=== PATIENT | female | born 1950 | race Caucasian/White ===

== ENCOUNTER 2019-02-23 02:46 | Inpatient (IN) | payer OTHER ==
--- NOTE | 2019-02-23 04:26 | PDOC.FPRHP ---
- History of Present Illness Chief Complaint: L hand pain History of Present Illness: 68yo F with pmh of RA on hydroxychloroquin [facility] for cellulitis. Pt nicked the skin of her L thumb 1-2 weeks ago moving a fire pit and then had the wound dirty while cleaning bee boxes. Pt reports since then she has had worsening edema, erythema and tenderness. No fever/ chills. Pt saw doctor recently who though it to be RA exacerbation and did not Rx antibiotics. Pt then presented to ED now with symptoms. L hand xray was done and shows soft tissue swelling alone and WBC 14 ED Course: see hpi - Allergies/Adverse Reactions Allergies Allergy/AdvReac Type Severity Reaction Status Date / Time codeine Allergy Mild Rash Verified 02/23/19 05:36 - Home Medications Medication Instructions Recorded Confirmed Type Atorvastatin Calcium [Lipitor] 20 mg PO DAILY 02/23/19 02/23/19 History Celecoxib 200 mg PO DAILY PRN 02/23/19 02/23/19 History Gabapentin 300 mg PO Q8H 02/23/19 02/23/19 History Hydroxychloroquine Sulfate 200 mg PO BID 02/23/19 02/23/19 History [Plaquenil] Valsartan/Hydrochlorothiazide 1 tablet PO DAILY 02/23/19 02/23/19 History [Diovan HCT] Venlafaxine HCl [Venlafaxine HCl 75 mg PO DAILY 02/23/19 02/23/19 History ER] - History PMHx: RA, stage 4 breast cancer (in remession with experimental drugs by [facility]) PSHx: hepatic cancerous lesion ablation FHx: mom- CAD Social: drinks 4 glasses of wine nightly, denies tobacco/drugs - Review of Systems ROS unobtainable: due to mental status General: denies: fever/chills, fatigue Eyes: denies: eye pain, vision changes ENT: denies: nasal congestion, rhinorrhea Respiratory: denies: congestion, shortness of breath Cardiovascular: denies: chest pain, palpitation Gastrointestinal: denies: nausea, vomiting Genitourinary: denies: incontinence, dysuria Skin: reports: other (L hand erythema). denies: jaundice Musculoskeletal: denies: pain, tenderness Neurological: denies: numbness, syncope Psychological: denies: anxiety, depression - Vital signs BP: [142/93] HR: [81] RR: [20] Tmax: [98.1] Pox: [94 ]% on [ra] Wt: [63] - Physical Exam Constitutional: awake, alert and oriented, well developed HEENT: normocephalic and atraumatic, EOMI, grossly normal vision, grossly normal hearing Neck: supple, no thyromegaly Chest: no-tender to palpation Heart: RRR, normal S1/S2 Lungs: CTAB, no respiratory distress Abdomen: soft, non-tender Musculoskeletal: other (pain and erythema L hand, TTP, pain with passive and active mvmt) Neurological: no focal deficit, normal sensation Skin: no rash/lesions, good turgor Heme/Lymphatic: no unusual bruising or bleeding, no purpura Psychiatric: normal mood and affect, good judgment and insight FMR H&P: A/P - Problem List (1) Tenosynovitis Current Visit: Yes Status: Acute Code(s): M65.9 - SYNOVITIS AND TENOSYNOVITIS, UNSPECIFIED (2) Rheumatoid arthritis Current Visit: Yes Status: Acute Code(s): M06.9 - RHEUMATOID ARTHRITIS, UNSPECIFIED (3) HTN (hypertension) Current Visit: Yes Status: Acute Code(s): I10 - ESSENTIAL (PRIMARY) HYPERTENSION (4) HLD (hyperlipidemia) Current Visit: Yes Status: Acute Code(s): E78.5 - HYPERLIPIDEMIA, UNSPECIFIED - Plan Tenosynovitis A- Nec Fasc unlikely from relatively unimpressive exam however exam is concerning for possible tenosynovitis. L hand xray just shows soft tissue swelling. WBC 14 P- MRI - continue clinda and zosyn - monitor exam RA - hold hydroxychloroquin for now HTN -home medications HLD - home medications Anxiety depression - home medications CODE: FULL FMR H&P: Upper Level - Pertinent history Pt is a 68 year old female who presents to the ED for worsening left hand/arm redness. Pt reports that two weeks ago, she noticed that her left thumb was tender and she thought that she may have had a thorn or splinter in it, so she tried to draw it out using a needle and drawing salves. She reports worsening pain over the last several days. Transferred from [facility] due to lack of beds. Was given Clindamycin and Zosyn prior to transfer. - Pertinent findings Vitals: BP: 124/79 P: 73 RR: 18 T: 98.3 O2: 98%on RA Exam: General: alert and oriented x 3 Heart: regular rate and rhythm, no murmurs, rubs, or gallops. Lungs: clear to auscultation Hand: left hand, mild digital swelling; site of penetrating injury on distal palmar left thumb; redness and erythema worse in 5th digit. decreased flexion involving all digits. - Plan Date/Time: 02/23/19 8475 I, Lavern Clarke, have evaluated this patient and agree with findings/plan as outlined by business management intern resident. Pertinent changes/additions are listed here. Tenosynovitis of left hand - will admit to medical unit for observation. - continue IV antibiotics. - MRI for further evaluation, with possible ortho consult depending on results. - will arrange to place pt in skyhook to help decrease swelling/inflammation. Regarding chronic medical problems, will restart home meds. Addendum - Attending - Attending Attestation Date/Time: 02/23/19 1755 I personally evaluated the patient and discussed the management with Dr. Arechiga I agree with the History, Examination, Assessment and Plan documented above with any addition or exceptions noted below. 68 yo right handed female with HX RA and breast CA receiving herceptin with several weeks swelling tenderness palmar aspect mid left thumb status post puncture wound from new firepit several weeks and now with increased swelling and streaking noted to left thumb palm and base 5th finger. Patient denies fever /chills patient with marked swelling hand able to flex and extend thumb admitted with cellulitis with some concern flexor tenosynovitis and closed space infection left hand. Empirical AB, MRI hand and consultation with Orthopedics.Patient received tetanus booster in [facility].
[2019-02-23 06:00] VITALS: BMI 22.0
[2019-02-23] MEDS ORDERED: Piperacillin/Tazobactam 4.5 GM in Sodium Chloride 0.9% 100 ML IVPB SCH (06:00)
[2019-02-23] MEDS ORDERED: Clindamycin Phosphate/D5W 600 MG/50 ML PIGGYBACK IV SCH (06:00)
[2019-02-23] MEDS ORDERED: Acetaminophen 325 MG TAB PO PRN (06:14)
[2019-02-23] MEDS ORDERED: Ondansetron ODT 4 MG TAB PO PRN (06:14)
[2019-02-23] MEDS ORDERED: traMADol HCl 50 MG TAB PO PRN (06:25)
[2019-02-23] MEDS: Gabapentin 300 MG CAP PO SCH ×3 (06:44→22:21)
[2019-02-23] MEDS: Valsartan 80 MG TAB PO SCH (08:38)
[2019-02-23] MEDS: Atorvastatin Calcium 20 MG TAB PO SCH (08:38)
[2019-02-23] MEDS: Enoxaparin Sodium 40 MG/0.4 ML SYRINGE SC SCH (08:38)
[2019-02-23] MEDS: Hydrochlorothiazide 25 MG TAB PO SCH (08:38)
[2019-02-23] MEDS: Venlafaxine HCl XR 75 MG CAP PO SCH (08:38)
[2019-02-23] MEDS ORDERED: Hydroxychloroquine Sulfate 200 MG TAB PO SCH (09:00)
[2019-02-23] MEDS ORDERED: CeleCOXIB 100 MG CAP PO PRN (09:00)
[2019-02-23] MEDS ORDERED: Prevnar 13-Val Conj/PF 0.5 ML SYRINGE IM ONE (09:00)
[2019-02-23] MEDS: Ibuprofen 600 MG TAB PO SCH ×3 (10:42→20:56)
[2019-02-23] MEDS: Piperacillin/Tazobactam 3.375 GM in Sodium Chloride 0.9% 100 ML IVPB SCH ×3 (10:45→23:57)
--- NOTE | 2019-02-23 12:05 | CON ---
DATE OF CONSULTATION: 02/23/2019 REQUESTING PHYSICIAN: Family Medicine Residents. CONSULTING PHYSICIAN: Efra Mcgrath MD REASON FOR CONSULTATION: Left hand pain and infection. HISTORY OF PRESENT ILLNESS: This is a 68-year-old female with a past medical history of rheumatoid arthritis, currently on rheumatoid medications, who presented as a transfer from the [facility] ED for left hand cellulitis. Currently at bedside, the patient reports that she nicked the skin of her left thumb approximately 1 to 2 weeks ago. She does not remember the mechanism or what she hit her hand on. Since that time, she has had worsening edema and erythema. She denies any fever or chills. She did see her primary care physician, who thought her symptoms to be rheumatoid arthritis exacerbation and did not prescribe any antibiotics. She then followed up several days later with worsening symptoms. This was at [facility] in [place]. She was then transferred to [facility] in [facility]. The patient states she left AMA after not seeing a provider. This is a time-out which she presented to the [facility]. When she presented at that time, blood was drawn and the patient was started on IV antibiotics. At bedside, the patient states that since starting the IV antibiotics, her symptoms have improved. The redness is decreased significantly. Her swelling persists, but is still somewhat improved. She is right-hand dominant. PAST MEDICAL HISTORY: Significant for rheumatoid arthritis, stage IV breast cancer in remission with experimental drugs by [facility]. Hypertension and hyperlipidemia. PAST SURGICAL HISTORY: Hepatic cancerous lesion ablation. SOCIAL HISTORY: The patient states that she drinks four glasses of wine nightly. Denies any tobacco or illicit drug use. FAMILY HISTORY: Reviewed and noncontributory. ALLERGIES: INCLUDE CODEINE. PHYSICAL EXAMINATION: VITAL SIGNS: Temperature 98.1, pulse of 81, respiratory rate of 20, O2 saturation of 94% on room air, and blood pressure 142/93. GENERAL: The patient is awake and alert. She is pleasant and appropriate with exam today. There is a friend present in the exam room at the time of our visit. HEENT: Head is normocephalic and atraumatic. NECK: Supple. Trachea midline. Breathing nonlabored. EXTREMITIES: The left upper extremity was evaluated. The patient has soft tissue swelling diffusely across the hand and all digits into the distal portion of the wrist. There is very mild erythema along the palmar aspect diffusely over the hand and the digits. There does appear to be a healing wound present to the palmar aspect of the distal portion of the thumb. There is a small scab present here. No drainage. I have palpated the entire hand including all flexor and extensor tendons. The patient does not show any signs of discomfort with this. She has limited motion in all digits, likely secondary to soft tissue swelling. No tenderness to palpation over any of her joints in the hand. No focal area of fluid collection is palpable. The patient is mildly tender upon palpation of the volar aspect of the wrist in the carpal tunnel region. No soft tissue swelling noted in the forearm, elbow, or shoulder. The patient is able to move the elbow and the shoulder freely without any signs of discomfort. All other extremities evaluated and no other injuries or infections are noted. X-rays reviewed on the [facility] system including views of the left hand demonstrate some soft tissue swelling about the thumb. No radiopaque foreign body is visualized. No fractures are visualized. There is a mild degree of degenerative changes about the hand. ASSESSMENT: Left hand cellulitis without palpable focal fluid collection. PLAN: At this point, the patient has eaten already today at around 10:30 this morning. We would like to continue her IV antibiotics. We will make her n.p.o. at midnight and plan to recheck her first thing in the morning. If her condition worsens or there is a palpable fluid collection on exam in the morning or concern for flexor tenosynovitis, we will plan for surgery tomorrow. Plan of care discussed with the patient today. She verbalized understanding. Job ID: [id number] [facility]
[2019-02-23] MEDS: Clindamycin/D5W 300 MG/50 ML BAG IVPB SCH ×2 (13:34→19:12)
[2019-02-23] MEDS ORDERED: Lorazepam 1 MG TAB PO SCH (13:45)
[2019-02-23] MEDS: traMADol HCl 50 MG TAB PO PRN ×2 (17:52→23:59)
[2019-02-23] MEDS ORDERED: hydrOXYzine 25 MG TAB PO PRN (19:59)
[2019-02-23] MEDS: Melatonin 3 MG TAB PO PRN (22:27)
[2019-02-24] MEDS: Clindamycin/D5W 300 MG/50 ML BAG IVPB SCH ×4 (00:54→19:35)
[2019-02-24] MEDS: Ibuprofen 600 MG TAB PO SCH ×4 (02:15→21:01)
[2019-02-24 06:17] LABS: #Eosinphils 0.2 thou/uL (0.0-0.7); #Lymphocytes 1.2 thou/uL (1.20-3.40); #Neutrophils 6.2 thou/uL (1.40-6.50); %Basophils 0.4 % (0.0-1.0); %Lymphocytes 13.6 % (21.0-51.0); %Monocytes 11.3 % (0.0-10.0); %Neutrophils 72.8 % (42.0-75.0); Hemoglobin 11.9 g/dL (12.0-16.0); Mean Corpuscular HGB CONC 33.7 g/dL (32.0-36.0); Mean Corpuscular Volume 97.8 fL (78.0-98.0); Mean Platelet Volume 7.1 fL (7.4-10.4); Platelet Count 157 thou/uL (130-400); RBC Distribution Width 11.9 % (11.5-14.5); Red Blood Cell (RBC) Count 3.61 mill/uL (4.20-5.40); White Blood Cell (WBC) Count 8.5 thou/uL (4.8-10.8)
[2019-02-24] MEDS: Gabapentin 300 MG CAP PO SCH ×3 (06:28→22:23)
[2019-02-24] MEDS: Piperacillin/Tazobactam 3.375 GM in Sodium Chloride 0.9% 100 ML IVPB SCH ×3 (06:29→18:09)
--- NOTE | 2019-02-24 06:51 | PDOC.FM ---
- Subjective Subjective: pt reports increased pain that is controlled with medication, swelling increased. - Objective Vital Signs & Weight: Vital Signs (12 hours) Temp Pulse Resp BP Pulse Ox 02/24/19 04:00 97.6 F 81 18 111/74 95 02/24/19 00:00 97.8 F 75 20 115/74 99 02/23/19 20:00 98.0 F 94 18 104/68 95 Weight Weight 63.8 kg I&O: 02/22/19 02/23/19 02/24/19 06:59 06:59 06:59 Intake Total 1010 Balance 1010 Result Diagrams: 02/24/19 05:45 Phys Exam - Physical Examination Constitutional: NAD HEENT: moist MMs Neck: no nodes Gastrointestinal: no distention ROM, pulses, sensation intact, minimal pain with palpation Neurological: non-focal Lymphatic: no nodes Psychiatric: normal affect Skin: no rash Deviation from normal: increased edema, reduced erythema margins Dx/Plan (1) HLD (hyperlipidemia) Code(s): E78.5 - HYPERLIPIDEMIA, UNSPECIFIED Status: Acute (2) HTN (hypertension) Code(s): I10 - ESSENTIAL (PRIMARY) HYPERTENSION Status: Acute (3) Rheumatoid arthritis Code(s): M06.9 - RHEUMATOID ARTHRITIS, UNSPECIFIED Status: Acute (4) Tenosynovitis Code(s): M65.9 - SYNOVITIS AND TENOSYNOVITIS, UNSPECIFIED Status: Acute - Plan Plan: Cellulitis - Nec Fasc unlikely from relatively unimpressive exam however exam is concerning for possible tenosynovitis. L hand xray just shows soft tissue swelling. WBC mildly elevated initially, downtrending - CRP elevated, MRI pending change in status - continue clinda and zosyn - ortho consulted, appreciate recs - monitor exam RA - hold hydroxychloroquin for now HTN -home medications HLD - home medications Anxiety depression - home medications CODE: FULL Diet: NPO at midnight Dispo: monitor for rapid spreading or loss of fxn, ortho considering surgery for status change Addendum - Attending - Attending Attestation Date/Time: 02/24/19 7634 I personally evaluated the patient and discussed the management with Dr. Michelle I agree with the History, Examination, Assessment and Plan documented above with any addition or exceptions noted below. Elevation of hand not started yet significant swelling this am stressed importance of elevation and dependant drainage. Continue current broad spectrum IV antibiotics. Pain controlled, WBC downtrending, appreciate Orthopedic recommendations.
[2019-02-24] MEDS: Hydrochlorothiazide 25 MG TAB PO SCH (08:43)
[2019-02-24] MEDS: Venlafaxine HCl XR 75 MG CAP PO SCH (08:44)
[2019-02-24] MEDS: Enoxaparin Sodium 40 MG/0.4 ML SYRINGE SC SCH (08:44)
[2019-02-24] MEDS: Atorvastatin Calcium 20 MG TAB PO SCH (08:44)
[2019-02-24] MEDS: Valsartan 80 MG TAB PO SCH (08:45)
[2019-02-24] MEDS: Lorazepam 1 MG TAB PO SCH (12:29)
[2019-02-24] MEDS: traMADol HCl 50 MG TAB PO PRN (12:30)
[2019-02-24] MEDS ORDERED: Lorazepam 1 MG TAB PO SCH (13:45)
--- NOTE | 2019-02-24 15:23 | MRI ---
MRI LEFT HAND PERFORMED WITH AND WITHOUT CONTRAST ENHANCEMENT: History: Patient has a history of a splinter in the thumb two weeks ago. Complains of pain and swelling which began in the thumb and now the entire hand is affected. FINDINGS: The marrow signal change within the hand is fairly normal. There is some minimal cystic change relate d to the third metacarpal head. This appears to be more related to arthritic change, not osteomyeliti s type process. There is pronounced edema changes with enhancement and edema change involving the flexor tendons. Thi s is particularly announced in the carpal tunnel region. It may have begun as infection related to fl exor tendon of the thumb and has now progressed into the carpal tunnel region. There is minimal fluid associated with and the carpal tunnel is somewhat enlarged related to the edema change. There is subcutaneous edema change in the hand and wrist consistent with associated cellulitis. No fo obie abscess collection is seen. IMPRESSION: Marked tenosynovitis change of the flexor tendons with marked edema change and enhancement, particula rly in the carpal tunnel region but extending into the flexor tendons, particularly at the level of t he thumb. Given the history, these changes would have to be viewed with a great deal of suspicion for an infection. Infectious tenosynovitis, possibly from some type of atypical organism. Findings were telephoned to Gudelia, the patient's nurse, who will telephone these results to the referring physician. POS: [facility]
[2019-02-25] MEDS: Piperacillin/Tazobactam 3.375 GM in Sodium Chloride 0.9% 100 ML IVPB SCH ×5 (00:13→23:21)
[2019-02-25] MEDS: Clindamycin/D5W 300 MG/50 ML BAG IVPB SCH ×4 (01:18→20:32)
[2019-02-25] MEDS: Ibuprofen 600 MG TAB PO SCH ×4 (03:51→20:42)
--- NOTE | 2019-02-25 06:34 | PDOC.FM ---
- Subjective Subjective: pt resting comfortably in bed, anxious about her operation. She denies any increased pain or swelling - Objective Vital Signs & Weight: Vital Signs (12 hours) Temp Pulse Resp BP Pulse Ox 02/24/19 20:00 97.8 F 100 16 105/67 93 L Weight Weight 63.8 kg I&O: 02/23/19 02/24/19 02/25/19 06:59 06:59 06:59 Intake Total 1010 660 Balance 1010 660 Result Diagrams: 02/25/19 06:18 Phys Exam - Physical Examination Constitutional: NAD HEENT: moist MMs Gastrointestinal: no distention Musculoskeletal: no edema Neurological: moves all 4 limbs Psychiatric: normal affect Deviation from normal: erythema marigins same as before, more diffuse edema Dx/Plan (1) HLD (hyperlipidemia) Code(s): E78.5 - HYPERLIPIDEMIA, UNSPECIFIED Status: Acute (2) HTN (hypertension) Code(s): I10 - ESSENTIAL (PRIMARY) HYPERTENSION Status: Acute (3) Rheumatoid arthritis Code(s): M06.9 - RHEUMATOID ARTHRITIS, UNSPECIFIED Status: Acute (4) Tenosynovitis Code(s): M65.9 - SYNOVITIS AND TENOSYNOVITIS, UNSPECIFIED Status: Acute - Plan Plan: Cellulitis - Nec Fasc unlikely from relatively unimpressive exam however exam is concerning for possible tenosynovitis. L hand xray just shows soft tissue swelling. WBC mildly elevated initially, downtrending - CRP elevated, MRI suspicious for infectious tensynovitis - continue clinda and zosyn - ortho consulted, appreciate recs - monitor exam - blaise ibuprofen, prn tramadol for pain control, elevate RA - hold hydroxychloroquin for now HTN -home medications HLD - home medications Anxiety depression - home medications CODE: FULL Diet: NPO at midnight Dispo: monitor for rapid spreading or loss of fxn, ortho to take for surgery today Addendum - Attending - Attending Attestation Date/Time: 02/25/19 0290 I personally evaluated the patient and discussed the management with Dr. Michelle I agree with the History, Examination, Assessment and Plan documented above with any addition or exceptions noted below. For Surgery today consider atypical infection sporotrichosis other fungal, mycobacteriun marinum etc may need improved MRSA as well coverage hopefully will get specimen to stain, culture from surgery.
[2019-02-25 06:35] LABS: #Eosinphils 0.2 thou/uL (0.0-0.7); #Lymphocytes 0.9 thou/uL (1.20-3.40); #Monocytes 0.7 thou/uL (0.11-0.59); #Neutrophils 3.7 thou/uL (1.40-6.50); %Basophils 0.3 % (0.0-1.0); %Lymphocytes 16.1 % (21.0-51.0); %Monocytes 12.2 % (0.0-10.0); %Neutrophils 68.5 % (42.0-75.0); Mean Corpuscular Hemoglobin 32.3 pg (27.0-31.0); Mean Corpuscular Volume 97.9 fL (78.0-98.0); Mean Platelet Volume 6.6 fL (7.4-10.4); Platelet Count 187 thou/uL (130-400); RBC Distribution Width 11.8 % (11.5-14.5); Red Blood Cell (RBC) Count 3.72 mill/uL (4.20-5.40); White Blood Cell (WBC) Count 5.4 thou/uL (4.8-10.8)
[2019-02-25] MEDS: Gabapentin 300 MG CAP PO SCH ×3 (06:44→22:27)
[2019-02-25] MEDS: Enoxaparin Sodium 40 MG/0.4 ML SYRINGE SC SCH (08:41)
[2019-02-25] MEDS: Atorvastatin Calcium 20 MG TAB PO SCH (08:41)
[2019-02-25] MEDS: Lorazepam 1 MG TAB PO SCH (08:41)
[2019-02-25] MEDS: Valsartan 80 MG TAB PO SCH (08:41)
[2019-02-25] MEDS: Venlafaxine HCl XR 75 MG CAP PO SCH (08:41)
[2019-02-25] MEDS: Hydrochlorothiazide 25 MG TAB PO SCH (08:41)
[2019-02-25] MEDS ORDERED: Lidocaine 2% Jelly 5 ML TUBE ONE (09:20)
[2019-02-25] MEDS ORDERED: Fentanyl 100 MCG/2 ML VIAL ONE (09:21)
[2019-02-25] MEDS ORDERED: Bacitracin Zinc Ointment 30 gm TUBE ONE (09:39)
[2019-02-25] MEDS ORDERED: Ondansetron PF 4 MG/2 ML Vial ONE (10:28)
[2019-02-25] MEDS ORDERED: Lidocaine 1% PF 5 ML VIAL ONE (10:28)
[2019-02-25] MEDS ORDERED: PROPOFOL 200 MG/20 ML VIAL ONE (10:28)
[2019-02-25] MEDS ORDERED: Bupivacaine PF 0.5% 30 ML VIAL ONE (11:09)
--- NOTE | 2019-02-25 19:29 | OP ---
DATE OF PROCEDURE: 02/25/2019 PREOPERATIVE DIAGNOSES: 1. Infectious tenosynovitis, left small finger. 2. Infectious tenosynovitis, left wrist. 3. Bursal abscess, flexor digitorum superficialis and profundus, ring finger, small finger, and the carpal canal. 4. Subacute carpal tunnel syndrome. FINDINGS: Very thick tenosynovium thickness within the carpal canal in the flexor digitorum profundus and superficialis of the ring and small finger and somewhat thick and boggy in the flexor digitorum superficialis of the long finger, but no index finger involvement. Also, no flexor pollicis longus actual gross infection although this may have been the source. PROCEDURES PERFORMED: 1. Small finger flexor digitorum superficialis and digitorum profundus radical tenosynovectomy with abscess drainage. 2. Left carpal tunnel release. 3. Left flexor digitorum superficialis and profundus wrist level radical tenosynovectomy of the small, ring, and long fingers. BLOOD LOSS: 20 mL. TOURNIQUET TIME: 47 minutes. INDICATIONS FOR PROCEDURE: The patient with rheumatoid arthritis. The patient is in immunocompromised state from post carcinoma treatment as well as rheumatoid disease, on multiple anti-immune regimen, was presented when she had a finger prick with a thorn approximately 5 days prior to procedure. No progressive loss of swelling or erythema in the thumb, but increased in the palm versus small finger and the palmar wrist, where she now has pain. She had a positive MRI for thickening of the tendon and the tendon sheath with question of infection involved. Operative intervention was indicated. DESCRIPTION OF PROCEDURE: After successful general LMA technique, the limb was prepped and draped. She then had an incision outlined on the carpal canal and in the palmar distal forearm/wrist as well as over the A1 dorian, small finger-ring finger junction, and the index finger-long finger junction. We also made a Genaro incision just distal to the A2 dorian because of the marked erythema in the small finger with edema. First, we explored the wrist by performing transcarpal ligament release through the standard incision staying just radial to the palmaris. Then, we found a very thick boggy synovium under the transverse carpal ligament, so a complete transverse carpal ligament resection was done for release. We found a boggy tenosynovium in every place along the tendon sheath except for in the FPL to the thumb. Now, we irrigated with 3 L of normal saline and Pulsavac pressure. I was able to free the median nerve enough from the boggy tenosynovitis and separate it and finish the tenosynovectomy radically along the flexor digitorum superficialis and profundus tendons within the carpal canal. We then finished the carpal tunnel release. We then established in the same type an incision on the radial side of the hand in between the index finger and middle finger. We did the same irrigation, and no infection or fluid abnormality was seen. A Pollack catheter was placed in the tendon sheath of the small finger and placed 1 cm deep, irrigated this area with bulb syringe and then placed in a bulky dressing with a splint, and there was no evidence of anesthetic or operative complication. Job ID: [id number]
--- NOTE | 2019-02-25 21:55 | CON ---
DATE OF CONSULTATION: 02/25/2019 REASON FOR CONSULTATION: Hand infection. HISTORY OF PRESENT ILLNESS: A 68-year-old who has a history of rheumatoid arthritis, on hydroxychloroquine and a history of breast cancer which she said was metastatic, but has been controlled with Herceptin and then sustained injury while trying to move a heavy object. Initially, the injury was in the distal aspect of the left thumb and the inflammatory process progressed over the past 2 weeks toward the thenar and then hypothenar eminence and then 5th digit reportedly. Eventually, turned up to the emergency room and was admitted and has undergone a surgical debridement, I believe by Dr. Kam. There was an MRI which was completed yesterday and this showed tenosynovitis of the flexor tendons with edema enhancement, particularly the carpal tunnel region, but no bone issues described in the MRI. Currently, she is feeling okay with minimal pain. No headaches, visual symptoms, sore throat, odynophagia, or dysphagia. No cough or sputum production. No chest pain. No abdominal pain or diarrhea. No genitourinary symptoms. No other joint symptoms. No neurological symptoms. PAST MEDICAL HISTORY: Rheumatoid arthritis, breast cancer, on Herceptin. PAST SURGICAL HISTORY: Hepatic metastatic lesion ablation. FAMILY HISTORY: Coronary artery disease. SOCIAL HISTORY: Drinks wine with dinner. Never a smoker. CURRENT MEDICATIONS: 1. Enoxaparin. 2. Clindamycin. 3. Gabapentin. 4. Hydrochlorothiazide. 5. Ibuprofen. 6. Melatonin. 7. Zosyn. PHYSICAL EXAMINATION: VITAL SIGNS: Temperature has been normal. GENERAL: Awake, alert, oriented. HEENT: Ocular movements conjugate. Oral cavity normal. Peripheral IV access. No Pérez catheter since. LYMPH NODES: No lymphadenopathy noted. NECK: Supple. No jugular vein distention or carotid bruits. No thyromegaly. LUNGS: Symmetric, clear breath sounds. HEART: S1, S2, regular rate, diminished heart sounds. No murmurs. No S3. ABDOMEN: Soft, not distended or tender. No ascites. No bladder distention. EXTREMITIES: No joint inflammatory activity outside the involved area. NEURO: Nonfocal. LABORATORY DATA: 1. White cell count 5.4, hemoglobin 12, platelets of 187, CRP 7.32 with GFR at 84. Microbiology with pending cultures. The Gram stain from the abscess with no organisms seen. We have acid-fast cultures and smears pending as well. The imaging study as noted above. ASSESSMENT: 1. Rheumatoid arthritis, on Plaquenil. 2. Stage IV breast cancer, in partial remission on Herceptin. 3. Injury to the left hand with inflammatory changes extending through the palmar tendons with extensive tenosynovitis. DISCUSSION: The patient has tenosynovitis, which started with this injury. Again, the organisms will range from the usual gram-positive organisms including Staph aureus, streptococci and 2 of 2 gram-negative rods. Fungal and mycobacterial pathogens also within the realm of possibility. Fortunately, the specimens were submitted for full microbiology workup and we will continue with current regimen for the time being and waiting on the results of the cultures to decide on the regimen for discharge planning. Depending on the results, she might need a PICC line insertion for continuation of therapy. Job ID: [id number]
[2019-02-26] MEDS: traMADol HCl 50 MG TAB PO PRN ×2 (00:10→23:34)
[2019-02-26] MEDS: Melatonin 3 MG TAB PO PRN (00:10)
[2019-02-26] MEDS: Clindamycin/D5W 300 MG/50 ML BAG IVPB SCH ×5 (01:28→23:35)
[2019-02-26] MEDS: Ibuprofen 600 MG TAB PO SCH ×4 (03:56→20:41)
[2019-02-26] MEDS ORDERED: Morphine 4 MG/ML VIAL SLOW IVP PRN (05:11)
[2019-02-26] MEDS: Piperacillin/Tazobactam 3.375 GM in Sodium Chloride 0.9% 100 ML IVPB SCH ×4 (05:22→23:35)
--- NOTE | 2019-02-26 06:09 | PDOC.FM ---
- Subjective Subjective: Pt reports pain much improved this AM, morphine is helping. States she already saw Dr. Kam this AM. - Objective Vital Signs & Weight: Vital Signs (12 hours) Temp Pulse Resp BP Pulse Ox 02/25/19 20:00 98.9 F 92 16 107/68 94 L Weight Weight 63.8 kg I&O: 02/24/19 02/25/19 02/26/19 06:59 06:59 06:59 Intake Total 1010 810 200 Balance 1010 810 200 Result Diagrams: 02/26/19 06:26 Phys Exam - Physical Examination Constitutional: NAD Neck: no nodes Respiratory: no wheezing, clear to auscultation bilateral Cardiovascular: RRR, no significant murmur Gastrointestinal: soft, non-tender, no distention Musculoskeletal: no edema Neurological: non-focal, moves all 4 limbs Psychiatric: normal affect, A&O x 3 Dx/Plan (1) Infectious tenosynovitis Code(s): M65.10 - OTHER INFECTIVE (TENO)SYNOVITIS, UNSPECIFIED SITE Status: Acute (2) Tenosynovitis Code(s): M65.9 - SYNOVITIS AND TENOSYNOVITIS, UNSPECIFIED Status: Acute (3) HLD (hyperlipidemia) Code(s): E78.5 - HYPERLIPIDEMIA, UNSPECIFIED Status: Chronic (4) HTN (hypertension) Code(s): I10 - ESSENTIAL (PRIMARY) HYPERTENSION Status: Chronic (5) Rheumatoid arthritis Code(s): M06.9 - RHEUMATOID ARTHRITIS, UNSPECIFIED Status: Chronic - Plan Plan: Infectious Tenosynovitis POD #1 from tenosynovectomy with abscess drainage - Thorn prick. Nec Fasc unlikely from relatively unimpressive exam however exam is concerning for possible tenosynovitis. L hand xray shows soft tissue swelling. WBC mildly elevated initially, downtrending - ESR and CRP elevated, MRI suspicious for infectious tensynovitis - ortho consulted, Dr. Kam, appreciate recs -02/25: tenosynovectomy with abscess drainage of L small finger and wrist; L carpal tunnel release. -Abscess culture: preliminary anaerobic culture - Be consulted, 02/25, appreciate recs - continue clinda and zosyn, abscess cultures pending - monitor exam - blaise ibuprofen, Morphine for pain control, elevate RA - hold hydroxychloroquine for now HTN -home medications HLD - home medications Anxiety depression - home medications Hx of breast cancer CODE: FULL Diet: HH Dispo: continue antibiotics, Monitor for improvement Addendum - Attending - Attending Attestation Date/Time: 02/26/19 [id number] I personally evaluated the patient and discussed the management with Dr. Celestina Victoria I agree with the History, Examination, Assessment and Plan documented above with any addition or exceptions noted below. POD #2 doing well continue current antibiotic regimen pending any surgical pathology results regard infectious agent.
[2019-02-26] MEDS: Gabapentin 300 MG CAP PO SCH ×3 (06:36→23:34)
[2019-02-26 06:49] LABS: #Basophils 0.1 thou/uL (0.0-0.2); #Eosinphils 0.2 thou/uL (0.0-0.7); #Lymphocytes 1.2 thou/uL (1.20-3.40); #Monocytes 0.8 thou/uL (0.11-0.59); #Neutrophils 3.5 thou/uL (1.40-6.50); %Basophils 0.9 % (0.0-1.0); %Eosinophils 4.3 % (0.0-10.0); %Monocytes 13.2 % (0.0-10.0); %Neutrophils 60.8 % (42.0-75.0); Hemoglobin 11.7 g/dL (12.0-16.0); Mean Corpuscular HGB CONC 32.8 g/dL (32.0-36.0); Mean Corpuscular Hemoglobin 32.7 pg (27.0-31.0); Mean Corpuscular Volume 99.5 fL (78.0-98.0); Mean Platelet Volume 6.4 fL (7.4-10.4); Platelet Count 206 thou/uL (130-400); RBC Distribution Width 11.9 % (11.5-14.5); Red Blood Cell (RBC) Count 3.57 mill/uL (4.20-5.40); White Blood Cell (WBC) Count 5.8 thou/uL (4.8-10.8)
[2019-02-26] MEDS: Atorvastatin Calcium 20 MG TAB PO SCH (08:46)
[2019-02-26] MEDS: Hydrochlorothiazide 25 MG TAB PO SCH (08:46)
[2019-02-26] MEDS: Venlafaxine HCl XR 75 MG CAP PO SCH (08:46)
[2019-02-26] MEDS: Valsartan 80 MG TAB PO SCH (08:46)
[2019-02-26] MEDS: Enoxaparin Sodium 40 MG/0.4 ML SYRINGE SC SCH (08:47)
[2019-02-27] MEDS: Ibuprofen 600 MG TAB PO SCH ×4 (03:10→20:59)
[2019-02-27] MEDS ORDERED: Morphine 2 MG/ML SYRINGE SLOW IVP PRN (04:10)
--- NOTE | 2019-02-27 06:11 | PDOC.FM ---
- Subjective Subjective: States her pain is well controlled. She was up and walking around hospital yesterday, encouraged her to continue being as active as she can be in the hospital. She is eating, drinking, stooling, and voiding well. - Objective Vital Signs & Weight: Vital Signs (12 hours) Temp Pulse Resp BP Pulse Ox 02/26/19 19:53 98.3 F 87 19 130/79 94 L 02/26/19 19:36 94 L Weight Weight 63.8 kg I&O: 02/25/19 02/26/19 02/27/19 06:59 06:59 06:59 Intake Total 810 200 Balance 810 200 Result Diagrams: 02/27/19 06:29 Phys Exam - Physical Examination Constitutional: NAD HEENT: moist MMs Respiratory: no wheezing, clear to auscultation bilateral Cardiovascular: RRR, no significant murmur Gastrointestinal: soft, non-tender, no distention Musculoskeletal: no edema, pulses present Neurological: moves all 4 limbs able to move fingers of left hand, cap refill <2 sec, Psychiatric: normal affect, A&O x 3 Skin: normal turgor, cap refill <2 seconds Dx/Plan (1) Infectious tenosynovitis Code(s): M65.10 - OTHER INFECTIVE (TENO)SYNOVITIS, UNSPECIFIED SITE Status: Acute (2) Tenosynovitis Code(s): M65.9 - SYNOVITIS AND TENOSYNOVITIS, UNSPECIFIED Status: Acute (3) HLD (hyperlipidemia) Code(s): E78.5 - HYPERLIPIDEMIA, UNSPECIFIED Status: Chronic (4) HTN (hypertension) Code(s): I10 - ESSENTIAL (PRIMARY) HYPERTENSION Status: Chronic (5) Rheumatoid arthritis Code(s): M06.9 - RHEUMATOID ARTHRITIS, UNSPECIFIED Status: Chronic - Plan Plan: Infectious Tenosynovitis POD #1 from tenosynovectomy with abscess drainage - L hand xray shows soft tissue swelling. WBC mildly elevated initially, downtrending - ESR and CRP elevated, MRI suspicious for infectious tensynovitis - ortho consulted, Dr. Kam, appreciate recs -02/25: tenosynovectomy with abscess drainage of L small finger and wrist; L carpal tunnel release. -Abscess culture: preliminary anaerobic culture (AFB not performed) - Be consulted, 3/29, appreciate recs - continue clinda and zosyn, abscess cultures/sensitivities pending - blaise ibuprofen, Morphine for pain control, elevate RA - hold hydroxychloroquine for now HTN -home medications HLD - home medications Anxiety depression - home medications Hx of breast cancer CODE: FULL Diet: HH Dispo: medical inpt, on antibiotics, awaiting culture results Addendum - Attending - Attending Attestation Date/Time: 02/27/19 [id number] I personally evaluated the patient and discussed the management with Dr. Rojas I agree with the History, Examination, Assessment and Plan documented above with any addition or exceptions noted below.
[2019-02-27] MEDS: Clindamycin/D5W 300 MG/50 ML BAG IVPB SCH ×3 (06:15→17:19)
[2019-02-27] MEDS: Piperacillin/Tazobactam 3.375 GM in Sodium Chloride 0.9% 100 ML IVPB SCH ×3 (06:15→17:18)
[2019-02-27] MEDS: Gabapentin 300 MG CAP PO SCH ×3 (06:15→22:14)
[2019-02-27 06:41] LABS: #Basophils 0.1 thou/uL (0.0-0.2); #Eosinphils 0.3 thou/uL (0.0-0.7); #Lymphocytes 1.3 thou/uL (1.20-3.40); #Monocytes 0.6 thou/uL (0.11-0.59); #Neutrophils 2.6 thou/uL (1.40-6.50); %Basophils 1.3 % (0.0-1.0); %Eosinophils 6.8 % (0.0-10.0); %Lymphocytes 26.1 % (21.0-51.0); %Monocytes 13.1 % (0.0-10.0); %Neutrophils 52.7 % (42.0-75.0); Hemoglobin 11.5 g/dL (12.0-16.0); Mean Corpuscular HGB CONC 33.6 g/dL (32.0-36.0); Mean Corpuscular Hemoglobin 32.6 pg (27.0-31.0); Mean Corpuscular Volume 96.9 fL (78.0-98.0); Mean Platelet Volume 6.6 fL (7.4-10.4); Platelet Count 205 thou/uL (130-400); RBC Distribution Width 11.6 % (11.5-14.5); Red Blood Cell (RBC) Count 3.53 mill/uL (4.20-5.40); White Blood Cell (WBC) Count 4.9 thou/uL (4.8-10.8)
[2019-02-27] MEDS: Valsartan 80 MG TAB PO SCH (07:52)
[2019-02-27] MEDS: Atorvastatin Calcium 20 MG TAB PO SCH (07:52)
[2019-02-27] MEDS: Hydrochlorothiazide 25 MG TAB PO SCH (07:52)
[2019-02-27] MEDS: Enoxaparin Sodium 40 MG/0.4 ML SYRINGE SC SCH (07:52)
[2019-02-27] MEDS: Venlafaxine HCl XR 75 MG CAP PO SCH (07:53)
[2019-02-27] MEDS: traMADol HCl 50 MG TAB PO PRN ×2 (15:55→22:14)
[2019-02-28] MEDS: Clindamycin/D5W 300 MG/50 ML BAG IVPB SCH ×3 (00:08→12:08)
[2019-02-28] MEDS: Piperacillin/Tazobactam 3.375 GM in Sodium Chloride 0.9% 100 ML IVPB SCH ×5 (00:08→23:25)
[2019-02-28] MEDS: Ibuprofen 600 MG TAB PO SCH ×4 (03:41→21:06)
[2019-02-28] MEDS: Gabapentin 300 MG CAP PO SCH ×3 (05:48→21:29)
[2019-02-28] MEDS ORDERED: Piperacillin/Tazobactam 3.375 GM VIAL ONE (05:49)
[2019-02-28 06:23] LABS: #Basophils 0.1 thou/uL (0.0-0.2); #Eosinphils 0.3 thou/uL (0.0-0.7); #Lymphocytes 1.2 thou/uL (1.20-3.40); #Monocytes 0.5 thou/uL (0.11-0.59); #Neutrophils 2.4 thou/uL (1.40-6.50); %Basophils 1.3 % (0.0-1.0); %Eosinophils 6.1 % (0.0-10.0); %Lymphocytes 27.6 % (21.0-51.0); %Monocytes 11.7 % (0.0-10.0); %Neutrophils 53.3 % (42.0-75.0); Mean Corpuscular HGB CONC 33.4 g/dL (32.0-36.0); Mean Corpuscular Hemoglobin 31.8 pg (27.0-31.0); Mean Corpuscular Volume 95.2 fL (78.0-98.0); Platelet Count 211 thou/uL (130-400); RBC Distribution Width 11.5 % (11.5-14.5); Red Blood Cell (RBC) Count 3.76 mill/uL (4.20-5.40); White Blood Cell (WBC) Count 4.4 thou/uL (4.8-10.8)
--- NOTE | 2019-02-28 08:39 | PDOC.FM ---
- Subjective Subjective: pt resting comfortably in bed, reports pain well controlled, denies fever/ chills - Objective Vital Signs & Weight: Vital Signs (12 hours) Temp Pulse Resp BP Pulse Ox 02/28/19 07:50 97.9 F 76 16 142/84 H 93 L Weight Weight 63.8 kg I&O: 02/27/19 02/28/19 03/01/19 06:59 06:59 06:59 Intake Total 810 Balance 810 Result Diagrams: 02/28/19 06:06 Phys Exam - Physical Examination Constitutional: NAD HEENT: moist MMs Neck: full ROM Gastrointestinal: no distention Musculoskeletal: no edema Neurological: moves all 4 limbs Lymphatic: no nodes Psychiatric: normal affect Deviation from normal: dressing c/d/i Dx/Plan (1) HLD (hyperlipidemia) Code(s): E78.5 - HYPERLIPIDEMIA, UNSPECIFIED Status: Chronic (2) HTN (hypertension) Code(s): I10 - ESSENTIAL (PRIMARY) HYPERTENSION Status: Chronic (3) Rheumatoid arthritis Code(s): M06.9 - RHEUMATOID ARTHRITIS, UNSPECIFIED Status: Chronic (4) Tenosynovitis Code(s): M65.9 - SYNOVITIS AND TENOSYNOVITIS, UNSPECIFIED Status: Acute - Plan Plan: Infectious Tenosynovitis - L hand xray shows soft tissue swelling. WBC mildly elevated initially, downtrending - ESR and CRP elevated, MRI suspicious for infectious tensynovitis - ortho consulted, Dr. Kam, appreciate recs -02/25: tenosynovectomy with abscess drainage of L small finger and wrist; L carpal tunnel release. -Abscess culture: NGTD - ID Dr. Lr consulted, 02/25, appreciate recs - continue clinda and zosyn, abscess cultures/sensitivities pending - blaise ibuprofen, Morphine for pain control, elevate RA - hold hydroxychloroquine for now HTN -home medications HLD - home medications Anxiety depression - home medications Hx of breast cancer CODE: FULL Diet: HH Dispo: medical inpt, on antibiotics, awaiting culture results
[2019-02-28] MEDS: Atorvastatin Calcium 20 MG TAB PO SCH (08:41)
[2019-02-28] MEDS: Hydrochlorothiazide 25 MG TAB PO SCH (08:41)
[2019-02-28] MEDS: Enoxaparin Sodium 40 MG/0.4 ML SYRINGE SC SCH (08:42)
[2019-02-28] MEDS: Valsartan 80 MG TAB PO SCH (08:43)
[2019-02-28] MEDS: traMADol HCl 50 MG TAB PO PRN (08:44)
[2019-02-28] MEDS: Venlafaxine HCl XR 75 MG CAP PO SCH (08:44)
[2019-02-28 10:46] LABS: Hemoglobin A1c 4.7 % (4.0-6.0)
[2019-02-28 10:57] LABS: Anion Gap 10 mmol/L (10-20); BUN (Urea Nitrogen) 11 mg/dL (9.8-20.1); Calc. Creatinine Clearance 63 mL/min (70-130); Calcium 9.5 mg/dL (7.8-10.44); Carbon Dioxide 31 mmol/L (23-31); Chloride 102 mmol/L (98-107); Estimated GFR-MDRD 63; Glucose 174 mg/dL (80-115); Sodium 139 mmol/L (136-145)
[2019-02-28 11:17] LABS: HIV (1/2) Antibody/Antigen Non-Reactive (NonReactive)
--- NOTE | 2019-02-28 12:24 | PRG ---
DATE OF SERVICE: 02/28/2019 Ms. Menjivar is a pleasant 68-year-old lady, who was admitted with tenosynovitis, possibly infectious of her left upper extremity. She has undergone surgery with Orthopedics and clinically, she is much improved. Her white count is normal. She is afebrile. She has been seen in consultation by Dr. Lr and we appreciate his input. She will be likely ready for discharge in a day or two as per recommendations of Ortho and Infectious Disease. Job ID: [id number]
[2019-02-28] MEDS ORDERED: Vancomycin HCl 1.25 GM in Sodium Chloride 0.9% 250 ML 250 ML IVPB SCH (17:00)
--- NOTE | 2019-02-28 22:14 | PRG ---
DATE OF SERVICE: 02/28/2019 SUBJECTIVE: She is feeling well, less pain in the left hand. No respiratory symptoms or abdominal pain. No diarrhea. No genitourinary symptoms. OBJECTIVE: VITAL SIGNS: Normal. LUNGS: Clear. HEART: S1, S2. Regular rate. ABDOMEN: Soft. Left hand dressed with bulky dressing. NEUROLOGIC: Nonfocal. LABORATORY DATA: White cell count 4.4, hemoglobin 12, platelets 211. Sodium 139, creatinine 0.89. HIV serology negative. Microbiology with Staph aureus from one sample from 2 pending susceptibility studies. ASSESSMENT AND DISCUSSION: 1. Rheumatoid arthritis, on Plaquenil. Stage IV breast cancer, in partial remission on Herceptin. 2. Injury to the left hand with inflammatory changes extending through the palmar tendons with extensive tenosynovitis. The patient will need PICC line placement and protracted IV antimicrobial therapy at least 2 weeks within either vancomycin or Rocephin or cefazolin pending on the final susceptibilities of the organism. We will have to monitor the cultures until final results Job ID: [id number] [facility]
[2019-03-01] MEDS: Ibuprofen 600 MG TAB PO SCH ×4 (03:14→22:37)
[2019-03-01] MEDS: Gabapentin 300 MG CAP PO SCH ×3 (06:33→22:37)
--- NOTE | 2019-03-01 07:04 | PDOC.FM ---
- Subjective Subjective: pt resting comfortably in bed, reports pain well controlled, denies fever/ chills. - Objective Vital Signs & Weight: Vital Signs (12 hours) Temp Pulse Resp BP Pulse Ox 02/28/19 20:00 97.5 F L 77 18 141/80 H 93 L 02/28/19 19:42 93 L Weight Weight 63.8 kg I&O: 02/28/19 03/01/19 03/02/19 06:59 06:59 06:59 Intake Total 580 Balance 580 Result Diagrams: 03/01/19 07:25 02/28/19 10:28 Phys Exam - Physical Examination Constitutional: NAD HEENT: moist MMs Neck: supple Gastrointestinal: no distention Musculoskeletal: pulses present Neurological: moves all 4 limbs Lymphatic: no nodes Psychiatric: normal affect Deviation from normal: dressing c/d/i Dx/Plan (1) HLD (hyperlipidemia) Code(s): E78.5 - HYPERLIPIDEMIA, UNSPECIFIED Status: Chronic (2) HTN (hypertension) Code(s): I10 - ESSENTIAL (PRIMARY) HYPERTENSION Status: Chronic (3) Rheumatoid arthritis Code(s): M06.9 - RHEUMATOID ARTHRITIS, UNSPECIFIED Status: Chronic (4) Tenosynovitis Code(s): M65.9 - SYNOVITIS AND TENOSYNOVITIS, UNSPECIFIED Status: Acute - Plan Plan: Infectious Tenosynovitis - L hand xray shows soft tissue swelling. WBC mildly elevated initially, downtrending - ESR and CRP elevated, MRI suspicious for infectious tensynovitis - ortho consulted, Dr. Kam, appreciate recs -02/25: tenosynovectomy with abscess drainage of L small finger and wrist; L carpal tunnel release. -Abscess culture: NGTD - ID Dr. Lr consulted, 02/25, appreciate recs - continue clinda and zosyn, abscess cultures/sensitivities pending - blaise ibuprofen, Morphine for pain control, elevate RA - hold hydroxychloroquine for now HTN -home medications HLD - home medications Anxiety depression - home medications Hx of breast cancer CODE: FULL Diet: HH Dispo: further surgical intervention today
[2019-03-01] MEDS: Enoxaparin Sodium 40 MG/0.4 ML SYRINGE SC SCH (07:29)
[2019-03-01 07:47] LABS: #Eosinphils 0.3 thou/uL (0.0-0.7); #Lymphocytes 0.9 thou/uL (1.20-3.40); #Monocytes 0.6 thou/uL (0.11-0.59); #Neutrophils 2.4 thou/uL (1.40-6.50); %Basophils 1.1 % (0.0-1.0); %Lymphocytes 21.1 % (21.0-51.0); %Monocytes 14.9 % (0.0-10.0); %Neutrophils 56.9 % (42.0-75.0); Hemoglobin 12.4 g/dL (12.0-16.0); Mean Corpuscular HGB CONC 33.8 g/dL (32.0-36.0); Mean Corpuscular Hemoglobin 31.9 pg (27.0-31.0); Mean Corpuscular Volume 94.3 fL (78.0-98.0); Platelet Count 221 thou/uL (130-400); RBC Distribution Width 11.4 % (11.5-14.5); Red Blood Cell (RBC) Count 3.88 mill/uL (4.20-5.40); White Blood Cell (WBC) Count 4.2 thou/uL (4.8-10.8)
[2019-03-01] MEDS: Piperacillin/Tazobactam 3.375 GM in Sodium Chloride 0.9% 100 ML IVPB SCH ×2 (08:00→12:10)
[2019-03-01] MEDS: Atorvastatin Calcium 20 MG TAB PO SCH (09:01)
[2019-03-01] MEDS: Venlafaxine HCl XR 75 MG CAP PO SCH (09:02)
[2019-03-01] MEDS: Hydrochlorothiazide 25 MG TAB PO SCH (09:02)
[2019-03-01] MEDS: Valsartan 80 MG TAB PO SCH (09:02)
--- NOTE | 2019-03-01 12:14 | PRG ---
DATE OF SERVICE: 03/01/2019 Ms. Menjivar continues to feel better. Her wound culture did grow out MSSA. We can likely step-down her IV therapy. She will be taken to surgery today for closure of her wounds and will be likely discharged tomorrow. Job ID: [id number]
[2019-03-01] MEDS ORDERED: PROPOFOL 200 MG/20 ML VIAL ONE (13:58)
[2019-03-01] MEDS ORDERED: PHENYLEPHRINE-NS 100 MCG/ML 10 ML SYRINGE ONE (13:58)
[2019-03-01] MEDS ORDERED: Ondansetron PF 4 MG/2 ML Vial ONE (13:58)
[2019-03-01] MEDS ORDERED: Lidocaine 1% PF 5 ML VIAL ONE (13:58)
[2019-03-01] MEDS ORDERED: Dexamethasone 20 MG/5 ML VIAL ONE (13:58)
[2019-03-01] MEDS: CEFAZOLIN 2 GM in Premix Bag 1 BAG IVPB SCH ×2 (14:16→22:39)
[2019-03-01 16:10] LABS: Fungus Stain Final report (.)
[2019-03-01 16:10] LABS: Fungus Stain Final report (.)
[2019-03-01 16:10] LABS: Fungus Stain Final report (.)
[2019-03-01 16:10] LABS: Fungus Stain Final report (.)
[2019-03-01] MEDS ORDERED: Sodium Chloride 0.9% 30 ML ONE (18:47)
[2019-03-01] MEDS ORDERED: Bupivacaine PF 0.5% 30 ML VIAL ONE ×2 (18:47→18:48)
[2019-03-01] MEDS ORDERED: Bacitracin Zinc Ointment 30 gm TUBE ONE (18:47)
[2019-03-01] MEDS ORDERED: Fentanyl 100 MCG/2 ML VIAL ONE ×3 (19:45→21:49)
[2019-03-01] MEDS ORDERED: Midazolam HCl 2 mg/2 ml Vial ONE (19:46)
[2019-03-01] MEDS ORDERED: Promethazine HCl 25 MG/ML VIAL IM PRN (21:07)
[2019-03-01] MEDS ORDERED: Ondansetron HCl/PF 4 MG/2 ML Vial IVP PRN (21:07)
[2019-03-01] MEDS ORDERED: Promethazine HCl 25 MG/ML VIAL SLOW IVP PRN (21:07)
[2019-03-01] MEDS ORDERED: Venlafaxine HCl XR 75 MG CAP PO SCH (22:45)
[2019-03-01] MEDS: traMADol HCl 50 MG TAB PO PRN (22:54)
[2019-03-02] MEDS: Ibuprofen 600 MG TAB PO SCH ×3 (03:57→14:28)
[2019-03-02] MEDS: CEFAZOLIN 2 GM in Premix Bag 1 BAG IVPB SCH ×2 (03:58→12:36)
[2019-03-02] MEDS: Gabapentin 300 MG CAP PO SCH ×2 (05:25→14:28)
[2019-03-02] MEDS: traMADol HCl 50 MG TAB PO PRN (05:30)
--- NOTE | 2019-03-02 06:48 | PDOC.FM ---
- Subjective Subjective: pt resting comfortably in bed, tolerating PO, pain well controlled - Objective Vital Signs & Weight: Vital Signs (12 hours) Temp Pulse Resp BP Pulse Ox 03/02/19 06:18 94 114/70 03/02/19 04:40 98.1 F 81 18 77/48 L 95 03/02/19 02:55 84 92/56 L 97 03/02/19 01:55 85 95/59 L 96 03/02/19 00:55 85 97/57 L 95 03/02/19 00:00 98 F 89 18 103/56 L 95 03/01/19 23:55 104 H 128/82 91 L 03/01/19 23:20 89 145/76 H 96 03/01/19 22:40 98 F 88 18 180/98 H 93 L 03/01/19 22:30 93 L Weight Weight 63.8 kg I&O: 02/28/19 03/01/19 03/02/19 06:59 06:59 06:59 Intake Total 580 530 Balance 580 530 Result Diagrams: 03/01/19 07:25 02/28/19 10:28 Phys Exam - Physical Examination Constitutional: NAD HEENT: moist MMs Neck: full ROM Musculoskeletal: pulses present Neurological: moves all 4 limbs Lymphatic: no nodes Psychiatric: normal affect Deviation from normal: dressing c/d/i Dx/Plan (1) HLD (hyperlipidemia) Code(s): E78.5 - HYPERLIPIDEMIA, UNSPECIFIED Status: Chronic (2) HTN (hypertension) Code(s): I10 - ESSENTIAL (PRIMARY) HYPERTENSION Status: Chronic (3) Rheumatoid arthritis Code(s): M06.9 - RHEUMATOID ARTHRITIS, UNSPECIFIED Status: Chronic (4) Tenosynovitis Code(s): M65.9 - SYNOVITIS AND TENOSYNOVITIS, UNSPECIFIED Status: Acute - Plan Plan: Infectious Tenosynovitis - L hand xray shows soft tissue swelling. WBC mildly elevated initially, downtrending - ESR and CRP elevated, MRI suspicious for infectious tensynovitis - ortho consulted, Dr. Kam, appreciate recs -02/25: tenosynovectomy with abscess drainage of L small finger and wrist; L carpal tunnel release. -Abscess culture: NGTD - 03/01: operative wound closure - ID Dr. Lr consulted, 3/29, appreciate recs - cefazolin began, 14 day total treatment, picc line outpt - blaise ibuprofen, Morphine for pain control, elevate RA - hold hydroxychloroquine for now HTN -home medications HLD - home medications Anxiety depression - home medications Hx of breast cancer CODE: FULL Diet: HH Dispo: DC home today
[2019-03-02] MEDS: Venlafaxine HCl XR 75 MG CAP PO SCH (08:13)
[2019-03-02] MEDS: Atorvastatin Calcium 20 MG TAB PO SCH (08:13)
[2019-03-02] MEDS: Valsartan 80 MG TAB PO SCH (08:14)
[2019-03-02] MEDS: Enoxaparin Sodium 40 MG/0.4 ML SYRINGE SC SCH (08:14)
[2019-03-02] MEDS: Hydrochlorothiazide 25 MG TAB PO SCH (08:14)
[2019-03-02 09:33] LABS: Hemoglobin 12.6 g/dL (12.0-16.0); Mean Corpuscular HGB CONC 33.9 g/dL (32.0-36.0); Mean Corpuscular Hemoglobin 32.6 pg (27.0-31.0); Mean Corpuscular Volume 96.2 fL (78.0-98.0); Mean Platelet Volume 6.1 fL (7.4-10.4); Platelet Count 286 thou/uL (130-400); RBC Distribution Width 11.5 % (11.5-14.5); Red Blood Cell (RBC) Count 3.87 mill/uL (4.20-5.40)
[2019-03-02 09:43] LABS: Band 2 % (5-11); Eosinophils 1 % (0-10); Lymphocytes 20 % (21-51); MDiff Complete? YES; Monocytes 14 % (0-10); Neutrophil 62 % (42-75); Platelet Morphology Comment Appears Adequate; RBC Morphology Normal
[2019-03-02 12:01] VITALS: BP 117/71; TEMP 98.5
--- NOTE | 2019-03-02 13:44 | PRG ---
DATE OF SERVICE: Ms. Menjivar underwent some wound closure yesterday and surgery without complication. She is on outpatient cefazolin and will be discharged today. She looks and feels much better, and will follow up with her personal PCP as an outpatient. She will require 4 weeks of intravenous cefazolin per Dr. Lr. Job ID: [id number]
--- NOTE | 2019-03-04 13:23 | DIS ---
DATE OF ADMISSION: 02/23/2019 DATE OF DISCHARGE: 03/02/2019 ADMITTING ATTENDING: Dr. Mo Sandoval. DISCHARGE ATTENDING: Dr. Ilia Watson. RESIDENT: Dr. [place] Michelle. CONSULTATIONS: 1. Dr. Kain Kam, Orthopedics. 2. Dr. Efra Mcgrath, Orthopedics. 3. Dr. Oscar Lr, Infectious Disease. PROCEDURES: 1. Tenosynovectomy with abscess drainage of left small finger and wrist on 02/25. 2. Operative wound closure on 03/01. IMAGING: Upper extremity MRI significant for marked tenosynovitis changes in the flexor tendons with marked edema change and enhancement particularly in the carpal tunnel region, but extending into the flexor tendons and particularly at the level of the thumb. Given the history of these changes, we would have to be imbued with a great deal of suspicion for an infection and infectious tenosynovitis, possibly from some atypical organism. Findings were telephoned to Rafaela, the patient's nurse. She will telephone the results to the referring physician. DISCHARGE MEDICATIONS: 1. Ibuprofen 600 mg p.o. q.6 hours p.r.n. 2. Diovan 1 tablet p.o. daily. 3. Plaquenil 200 mg p.o. b.i.d. 4. Venlafaxine 75 mg p.o. daily. 5. Lipitor 20 mg p.o. daily. 6. Gabapentin 300 mg p.o. q.8 hours. 7. Celecoxib 200 mg p.o. daily. PRIMARY DIAGNOSIS: Infectious tenosynovitis. SECONDARY DIAGNOSES: 1. Rheumatoid arthritis. 2. Hypertension. 3. Hyperlipidemia. 4. Anxiety/depression. 5. History of breast cancer. HISTORY OF PRESENT ILLNESS AND HOSPITAL COURSE: Ms. Menjivar is a 68-year-old female with past medical history significant for rheumatoid arthritis, on hydroxychloroquine and presented as a transfer from the emergency department in [place] for cellulitis. She reports that she had a skin break approximately one week ago, and since that time, increasing in erythema and edema of the area. On exam, the patient's finger and hand were swollen, edematous, and erythematous without crepitus, tenderness to palpation of the flexor or extensor tendons, or lack of pulses or sensation to distal fingertips. Deemed stable at that time for inpatient hospital admission with IV antibiotics. Ortho consulted the following day. MRI was performed revealing no fluid around the flexor tendons. Orthopedic Surgery decided to intervene operatively. Infectious Disease was consulted for antibiotic choice. The patient tolerated procedures well. The wound was cultured. Organism susceptible to cefazolin. Discharged with a 14-day IV antibiotic course, taken back for operative closure of wounds two days after irrigation and drainage. Again, the patient continued to improve. Vital signs remained stable. The patient was afebrile. Deemed stable for discharge home with outpatient IV antibiotics. ACTIVITY: As tolerated. FOLLOWUP: Follow up with PCP in 7 days and IV antibiotic therapy for the next 14. DIET: Regular. Job ID: [id number]
== END 2019-03-02 16:41 | disposition home or self-care (01) | DRG 513 ==
LOC: ERS 02:46 → OBSVTOIN 05:16 → T4-A 05:16
PROVIDERS: ADMIT Student in an Organized Health Care Education/Training Program; ATTEND Student in an Organized Health Care Education/Training Program
PROC: 0LT80ZZ Resection of Left Hand Tendon, Open Approach (ICD-10-PCS; principal; 2019-02-25)
PROC: 01N50ZZ Release Median Nerve, Open Approach (ICD-10-PCS; 2019-02-25)
DX: M65.142 Other infective (teno)synovitis, left hand (principal); L03.114 Cellulitis of left upper limb; L02.512 Cutaneous abscess of left hand; M06.9 Rheumatoid arthritis, unspecified; C50.919 Malignant neoplasm of unspecified site of unspecified female breast; E78.5 Hyperlipidemia, unspecified; F41.9 Anxiety disorder, unspecified; B95.61 Methicillin susceptible Staphylococcus aureus infection as the cause of diseases classified elsewhere; F32.9 Major depressive disorder, single episode, unspecified; G56.02 Carpal tunnel syndrome, left upper limb; Z79.899 Other long term (current) drug therapy
CPT/HCPCS: 36415; 80048; 82565; 83036; 85025; 86140; 87070; 87077; 87102; 87116; 87186; 87205; 87206; 87389; 99284; J1650; J2001; J2250; J2270; J2405; J2543; J2704; J3010; J3370; J3490; J7050; Q0162; S0020